=== PATIENT | female | born 1975 | race Caucasian/White ===

== ENCOUNTER 2020-08-30 09:50 | Inpatient (IN) | payer OTHER ==
[2020-08-30 12:21] VITALS: BMI 31.3
[2020-08-30] MEDS ORDERED: MAG HYDROX/AL HYDROX/SIMETH 30 ML UNIT-DOSE CUP PO PRN (13:02)
[2020-08-30] MEDS ORDERED: MAGNESIUM CITRATE 300 ML BOTTLE PO PRN (13:02)
[2020-08-30] MEDS ORDERED: BISMUTH SUBSALICYLATE 524 MG/30 ML UD PO PRN (13:02)
[2020-08-30] MEDS ORDERED: ONDANSETRON *ODT* 4 MG TABLET SL PRN (13:02)
[2020-08-30] MEDS ORDERED: MENTHOL/PHENOL 1 EACH UD MM PRN (13:02)
[2020-08-30] MEDS ORDERED: NALOXONE (NARCAN) HCL 4 MG/0.1 ML SPRAY NS PRN (13:02)
[2020-08-30] MEDS ORDERED: ACETAMINOPHEN 325 MG TABLET (FP) PO PRN ×2 (13:02)
[2020-08-30] MEDS ORDERED: MAGNESIUM HYDROX 2400MG/30ML ORAL SUSPENSION 30 ML CUP PO PRN (13:02)
[2020-08-30] MEDS ORDERED: NICOTINE POLACRILEX 2 MG GUM BUC PRN (13:02)
[2020-08-30] MEDS ORDERED: IBUPROFEN 400 MG TABLET (FP) PO PRN (13:02)
[2020-08-30] MEDS: LORazepam 1 MG TABLET PO PRN (15:42)
[2020-08-30] MEDS: hydrOXYzine PAMOATE 25 MG CAPSULE (FP) PO SCH ×3 (15:42→22:35)
[2020-08-30] MEDS: NICOTINE 14 MG/24 HOURS TOPICAL PATCH TD SCH (15:46)
[2020-08-30] MEDS: PRENATAL VITAMINS W/ FOLIC ACID TABLET (FP) PO SCH (15:46)
[2020-08-30 17:27] LABS: HEMATOCRIT 40.1 % (32.4-45.2); HEMOGLOBIN 13.5 GM/dL (10.7-15.3); MCH 31.7 pg (25.7-33.7); MCHC 33.8 g/dl (32.0-36.0); MEAN CELL VOLUME 93.6 fl (80-96); MEAN PLT VOLUME 10.4 fl (7.5-11.1); PLATELET COUNT 148 K/MM3 (134-434); RBC 4.28 M/mm3 (3.60-5.2); RDW 13.9 % (11.6-15.6); WHITE BLOOD COUNT 6.7 K/mm3 (4.0-10.0)
[2020-08-30 17:29] LABS: CALCIUM 8.7 mg/dL (8.5-10.1)
[2020-08-30 17:30] LABS: ALBUMIN 3.4 g/dl (3.4-5.0); BLOOD UREA NITROGEN 17.3 mg/dL (7-18)
[2020-08-30 17:33] LABS: CREATININE 0.7 mg/dL (0.55-1.3)
[2020-08-30 17:35] LABS: BILIRUBIN,TOTAL 0.6 mg/dL (0.2-1); TOT PROT 7.2 g/dl (6.4-8.2)
[2020-08-30] MEDS: LORazepam 2 MG TABLET PO SCH ×2 (18:01→22:36)
[2020-08-30] MEDS ORDERED: MELATONIN 5 MG TABLETS PO SCH (22:00)
[2020-08-30] MEDS: THIAMINE HCL 100 MG TABLET (FP) PO SCH (22:37)
[2020-08-31] MEDS: METHADONE HCL 40 MG DISPERSABLE TABLET PO SCH (06:50)
[2020-08-31] MEDS: LORazepam 2 MG TABLET PO SCH ×4 (06:50→22:32)
[2020-08-31] MEDS: hydrOXYzine PAMOATE 25 MG CAPSULE (FP) PO SCH ×5 (06:50→22:32)
[2020-08-31] MEDS: PRENATAL VITAMINS W/ FOLIC ACID TABLET (FP) PO SCH (11:15)
[2020-08-31] MEDS: NICOTINE 14 MG/24 HOURS TOPICAL PATCH TD SCH (11:17)
[2020-08-31] MEDS: MELATONIN 5 MG TABLETS PO SCH (22:32)
[2020-08-31] MEDS: THIAMINE HCL 100 MG TABLET (FP) PO SCH (22:32)
[2020-09-01] MEDS: hydrOXYzine PAMOATE 25 MG CAPSULE (FP) PO SCH ×5 (06:09→22:00)
[2020-09-01] MEDS: METHADONE HCL 40 MG DISPERSABLE TABLET PO SCH (06:09)
[2020-09-01] MEDS: LORazepam 1 MG TABLET PO SCH ×4 (06:09→22:00)
[2020-09-01] MEDS: PRENATAL VITAMINS W/ FOLIC ACID TABLET (FP) PO SCH (10:27)
[2020-09-01] MEDS: NICOTINE 14 MG/24 HOURS TOPICAL PATCH TD SCH (10:30)
[2020-09-01] MEDS: LORazepam 1 MG TABLET PO PRN (13:09)
[2020-09-01] MEDS: METHOCARBAMOL 500 MG TABLET PO PRN ×2 (13:09→22:01)
[2020-09-01] MEDS: THIAMINE HCL 100 MG TABLET (FP) PO SCH (22:00)
[2020-09-01] MEDS: MELATONIN 5 MG TABLETS PO SCH (22:00)
[2020-09-02] MEDS ORDERED: LORazepam 0.5 MG TABLET PO PRN
[2020-09-02] MEDS: LORazepam 0.5 MG TABLET PO SCH ×3 (06:39→17:39)
[2020-09-02] MEDS: METHADONE HCL 40 MG DISPERSABLE TABLET PO SCH (06:39)
[2020-09-02] MEDS: hydrOXYzine PAMOATE 25 MG CAPSULE (FP) PO SCH ×4 (06:43→17:37)
[2020-09-02] MEDS: METHOCARBAMOL 500 MG TABLET PO PRN (10:07)
[2020-09-02] MEDS: PRENATAL VITAMINS W/ FOLIC ACID TABLET (FP) PO SCH (10:07)
[2020-09-02] MEDS: NICOTINE 14 MG/24 HOURS TOPICAL PATCH TD SCH (10:07)
[2020-09-02 18:07] VITALS: BP 106/73; PULSE 91; TEMP 97.5
[2020-09-03] MEDS ORDERED: LORazepam 0.5 MG TABLET PO ONE (05:00)
[2020-09-03 06:05] LABS: SARS-CoV-2 NAA Not Detected (Not Detected)
== END 2020-09-02 18:29 | disposition home or self-care (01) | DRG 773 ==
LOC: YASAS 09:50 → Y6N 13:18
PROVIDERS: ADMIT Allergy & Immunology; ATTEND Allergy & Immunology
PROC: HZ2ZZZZ Detoxification Services for Substance Abuse Treatment (ICD-10-PCS; principal; 2020-08-30)
DX: F10.230 Alcohol dependence with withdrawal, uncomplicated (principal); F11.20 Opioid dependence, uncomplicated; F13.20 Sedative, hypnotic or anxiolytic dependence, uncomplicated; F14.20 Cocaine dependence, uncomplicated; F12.20 Cannabis dependence, uncomplicated; F17.210 Nicotine dependence, cigarettes, uncomplicated; F19.282 Other psychoactive substance dependence with psychoactive substance-induced sleep disorder; F19.24 Other psychoactive substance dependence with psychoactive substance-induced mood disorder; F31.9 Bipolar disorder, unspecified; R74.01 Elevation of levels of liver transaminase levels; Z56.0 Unemployment, unspecified; Z59.0 Homelessness
CPT/HCPCS: 36415; 80053; 81025; 85027; 86780; C9803; U0003; U0005

== ENCOUNTER 2021-07-04 12:50 | Inpatient (IN) | payer OTHER ==
[2021-07-04] MEDS ORDERED: ACETAMINOPHEN 325 MG TABLET (FP) PO PRN (14:00)
[2021-07-04] MEDS ORDERED: MAGNESIUM CITRATE 300 ML BOTTLE PO PRN (14:00)
[2021-07-04] MEDS ORDERED: MAGNESIUM HYDROX 2400MG/30ML ORAL SUSPENSION 30 ML CUP PO PRN (14:00)
[2021-07-04] MEDS ORDERED: MENTHOL/PHENOL 1 EACH UD MM PRN (14:00)
[2021-07-04] MEDS ORDERED: MAG HYDROX/AL HYDROX/SIMETH 30 ML UNIT-DOSE CUP PO PRN (14:00)
[2021-07-04] MEDS ORDERED: LOPERAMIDE HCL 2 MG CAPSULE PO PRN (14:00)
[2021-07-04] MEDS ORDERED: BISMUTH SUBSALICYLATE 524 MG/30 ML PO PRN (14:00)
[2021-07-04] MEDS ORDERED: ONDANSETRON *ODT* 4 MG TABLET SL PRN (14:00)
[2021-07-04 14:45] VITALS: BMI 32.7
[2021-07-04] MEDS ORDERED: METHOCARBAMOL 500 MG TABLET ONE (15:19)
[2021-07-04] MEDS ORDERED: hydrOXYzine PAMOATE 25 MG CAPSULE (FP) PO ONE (15:19)
[2021-07-04] MEDS ORDERED: IBUPROFEN 400 MG TABLET (FP) PO ONE (15:20)
[2021-07-04] MEDS ORDERED: LORazepam 1 MG TABLET ONE (15:20)
[2021-07-04] MEDS: LORazepam 1 MG TABLET PO PRN ×2 (15:22→19:41)
[2021-07-04] MEDS: IBUPROFEN 400 MG TABLET (FP) PO PRN (15:23)
[2021-07-04] MEDS: METHOCARBAMOL 500 MG TABLET PO PRN (15:23)
[2021-07-04] MEDS: hydrOXYzine PAMOATE 25 MG CAPSULE (FP) PO SCH ×3 (15:24→22:45)
[2021-07-04 17:11] LABS: CALCIUM 8.8 mg/dL (8.5-10.1)
[2021-07-04 17:12] LABS: ALBUMIN 3.3 g/dl (3.4-5.0); BLOOD UREA NITROGEN 8.1 mg/dL (7-18)
[2021-07-04 17:15] LABS: CREATININE 0.7 mg/dL (0.55-1.3)
[2021-07-04 17:16] LABS: BILIRUBIN,TOTAL 0.7 mg/dL (0.2-1); HEMATOCRIT 40.2 % (32.4-45.2); HEMOGLOBIN 13.7 GM/dL (10.7-15.3); MCH 31.2 pg (25.7-33.7); MEAN CELL VOLUME 91.9 fl (80-96); MEAN PLT VOLUME 9.6 fl (7.5-11.1); PLATELET COUNT 147 10^3/uL (134-434); RBC 4.38 M/mm3 (3.60-5.2); RDW 15.1 % (11.6-15.6); TOT PROT 7.4 g/dl (6.4-8.2); WHITE BLOOD COUNT 6.8 K/mm3 (4.0-10.0)
[2021-07-04] MEDS: LORazepam 2 MG TABLET PO SCH ×2 (17:37→22:45)
[2021-07-04] MEDS: NICOTINE 14 MG/24 HOURS TOPICAL PATCH TD SCH (17:40)
[2021-07-04] MEDS: PRENATAL VITAMINS W/ FOLIC ACID TABLET (FP) PO SCH (17:40)
[2021-07-04] MEDS: NICOTINE 10 MG CARTRIDGE (INHALER) IH PRN (17:41)
[2021-07-04] MEDS: ACETAMINOPHEN 325 MG TABLET (FP) PO PRN (17:42)
[2021-07-04] MEDS: THIAMINE HCL 100 MG TABLET (FP) PO SCH (22:45)
[2021-07-04] MEDS: MELATONIN 5 MG TABLETS PO SCH (22:45)
[2021-07-05] MEDS: hydrOXYzine PAMOATE 25 MG CAPSULE (FP) PO SCH ×5 (05:35→22:37)
[2021-07-05] MEDS: LORazepam 2 MG TABLET PO SCH ×4 (05:35→22:41)
[2021-07-05] MEDS ORDERED: VITAMINS A AND D TOPICAL OINTMENT 60 GM TUBE TP PRN (09:57)
[2021-07-05] MEDS: METHOCARBAMOL 500 MG TABLET PO PRN (10:21)
[2021-07-05] MEDS: PRENATAL VITAMINS W/ FOLIC ACID TABLET (FP) PO SCH (10:21)
[2021-07-05] MEDS: methaDONE HCL 40 MG DISPERSABLE TABLET PO SCH (10:22)
[2021-07-05] MEDS: NICOTINE 14 MG/24 HOURS TOPICAL PATCH TD SCH (10:23)
[2021-07-05] MEDS: ACETAMINOPHEN 325 MG TABLET (FP) PO PRN (10:26)
[2021-07-05] MEDS: LORazepam 1 MG TABLET PO PRN ×2 (13:48→20:30)
[2021-07-05] MEDS: IBUPROFEN 400 MG TABLET (FP) PO PRN (17:53)
[2021-07-05] MEDS: SULFAMETHOXAZOLE/TRIMETHOPRIM 800MG/160MG D.S. TABLET PO SCH (22:37)
[2021-07-05] MEDS: THIAMINE HCL 100 MG TABLET (FP) PO SCH (22:37)
[2021-07-05] MEDS: MELATONIN 5 MG TABLETS PO SCH (22:37)
[2021-07-06] MEDS: methaDONE HCL 40 MG DISPERSABLE TABLET PO SCH (06:27)
[2021-07-06] MEDS: LORazepam 1 MG TABLET PO SCH ×4 (06:28→22:03)
[2021-07-06] MEDS: hydrOXYzine PAMOATE 25 MG CAPSULE (FP) PO SCH ×5 (06:31→22:02)
[2021-07-06] MEDS: METHOCARBAMOL 500 MG TABLET PO PRN ×2 (09:59→17:12)
[2021-07-06] MEDS: PRENATAL VITAMINS W/ FOLIC ACID TABLET (FP) PO SCH (09:59)
[2021-07-06] MEDS: ACETAMINOPHEN 325 MG TABLET (FP) PO PRN ×3 (09:59→22:04)
[2021-07-06] MEDS: SULFAMETHOXAZOLE/TRIMETHOPRIM 800MG/160MG D.S. TABLET PO SCH ×2 (09:59→22:02)
[2021-07-06] MEDS: NICOTINE 10 MG CARTRIDGE (INHALER) IH PRN (10:02)
[2021-07-06] MEDS: NICOTINE 14 MG/24 HOURS TOPICAL PATCH TD SCH (10:02)
[2021-07-06] MEDS: LORazepam 1 MG TABLET PO PRN ×2 (12:28→20:13)
[2021-07-06 14:07] LABS: SARS-CoV-2 NAA Not Detected (Not Detected)
[2021-07-06] MEDS: THIAMINE HCL 100 MG TABLET (FP) PO SCH (22:02)
[2021-07-06] MEDS: MELATONIN 5 MG TABLETS PO SCH (22:02)
[2021-07-07] MEDS: hydrOXYzine PAMOATE 25 MG CAPSULE (FP) PO SCH ×5 (06:14→21:50)
[2021-07-07] MEDS: methaDONE HCL 40 MG DISPERSABLE TABLET PO SCH (06:14)
[2021-07-07] MEDS: LORazepam 0.5 MG TABLET PO SCH ×4 (06:14→23:04)
[2021-07-07] MEDS: METHOCARBAMOL 500 MG TABLET PO PRN ×2 (06:14→16:39)
[2021-07-07] MEDS: SULFAMETHOXAZOLE/TRIMETHOPRIM 800MG/160MG D.S. TABLET PO SCH ×2 (10:28→21:47)
[2021-07-07] MEDS: PRENATAL VITAMINS W/ FOLIC ACID TABLET (FP) PO SCH (10:28)
[2021-07-07] MEDS: NICOTINE 14 MG/24 HOURS TOPICAL PATCH TD SCH (10:28)
[2021-07-07 11:34] LABS: PH,URINE 7.5 (5.0-8.0); URINE APPEARANCE TURBID; URINE BILIRUBIN NEGATIVE (NEGATIVE); URINE COLOR YELLOW; URINE GLUCOSE (UA) NEGATIVE (NEGATIVE); URINE KETONE NEGATIVE (NEGATIVE); URINE LEUK ESTERASE NEGATIVE (NEGATIVE); URINE NITRITE NEGATIVE (NEGATIVE); URINE PROTEIN NEGATIVE (NEGATIVE)
[2021-07-07] MEDS: LORazepam 0.5 MG TABLET PO PRN ×3 (13:16→22:55)
[2021-07-07] MEDS: IBUPROFEN 400 MG TABLET (FP) PO PRN ×2 (16:39→21:47)
[2021-07-07] MEDS: MELATONIN 5 MG TABLETS PO SCH (21:48)
[2021-07-07] MEDS: THIAMINE HCL 100 MG TABLET (FP) PO SCH (21:50)
[2021-07-08] MEDS ORDERED: LORazepam 0.5 MG TABLET PO ONE (05:00)
[2021-07-08] MEDS: methaDONE HCL 40 MG DISPERSABLE TABLET PO SCH (05:21)
[2021-07-08] MEDS: hydrOXYzine PAMOATE 25 MG CAPSULE (FP) PO SCH ×2 (05:21→09:27)
[2021-07-08] MEDS: SULFAMETHOXAZOLE/TRIMETHOPRIM 800MG/160MG D.S. TABLET PO SCH (09:27)
[2021-07-08] MEDS: PRENATAL VITAMINS W/ FOLIC ACID TABLET (FP) PO SCH (09:27)
[2021-07-08] MEDS: NICOTINE 14 MG/24 HOURS TOPICAL PATCH TD SCH (09:27)
[2021-07-08] MEDS: METHOCARBAMOL 500 MG TABLET PO PRN (09:27)
[2021-07-08 10:58] VITALS: BP 104/61; PULSE 82; TEMP 98.1
== END 2021-07-08 11:55 | disposition other institution (70) | DRG 773 ==
LOC: YASAS 12:50 → Y6N 14:54
PROVIDERS: ADMIT Allergy & Immunology; ATTEND Allergy & Immunology
PROC: HZ2ZZZZ Detoxification Services for Substance Abuse Treatment (ICD-10-PCS; principal; 2021-07-04)
DX: F10.230 Alcohol dependence with withdrawal, uncomplicated (principal); F11.20 Opioid dependence, uncomplicated; F14.20 Cocaine dependence, uncomplicated; F13.20 Sedative, hypnotic or anxiolytic dependence, uncomplicated; F17.210 Nicotine dependence, cigarettes, uncomplicated; F19.282 Other psychoactive substance dependence with psychoactive substance-induced sleep disorder; F19.24 Other psychoactive substance dependence with psychoactive substance-induced mood disorder; F31.9 Bipolar disorder, unspecified; B18.2 Chronic viral hepatitis C; Z59.01 Sheltered homelessness; Z56.0 Unemployment, unspecified
CPT/HCPCS: 36415; 80053; 81003; 81025; 85027; 86780; 87086; 87186; C9803-CS; U0003; U0005

== ENCOUNTER 2021-07-08 12:03 | Inpatient (IN) | payer OTHER ==
[2021-07-08] MEDS ORDERED: P-EPHED 60MG/TRIPROLIDI 2.5MG TABLET PO PRN (13:29)
[2021-07-08] MEDS ORDERED: LOPERAMIDE HCL 2 MG CAPSULE PO PRN (13:29)
[2021-07-08] MEDS ORDERED: MAGNESIUM HYDROX 2400MG/30ML ORAL SUSPENSION 30 ML CUP PO PRN (13:29)
[2021-07-08] MEDS ORDERED: guaiFENesin 200 MG/10 ML 10 ML UNIT-DOSE CUPS PO PRN (13:29)
[2021-07-08] MEDS ORDERED: MAG HYDROX/AL HYDROX/SIMETH 30 ML UNIT-DOSE CUP PO PRN (13:29)
[2021-07-08] MEDS ORDERED: MAGNESIUM CITRATE 300 ML BOTTLE PO PRN (13:29)
[2021-07-08] MEDS ORDERED: IBUPROFEN 400 MG TABLET (FP) PO PRN (13:29)
[2021-07-08] MEDS: ACETAMINOPHEN 325 MG TABLET (FP) PO PRN (16:03)
[2021-07-08] MEDS: VITAMINS A AND D TOPICAL OINTMENT 60 GM TUBE TP SCH (21:50)
[2021-07-08] MEDS: hydrOXYzine PAMOATE 25 MG CAPSULE (FP) PO PRN (21:52)
[2021-07-08] MEDS: MELATONIN 5 MG TABLETS PO SCH (21:52)
[2021-07-08] MEDS: METHOCARBAMOL 500 MG TABLET PO PRN (21:52)
[2021-07-08] MEDS: THIAMINE HCL 100 MG TABLET (FP) PO SCH (21:52)
[2021-07-08] MEDS: SULFAMETHOXAZOLE/TRIMETHOPRIM 800MG/160MG D.S. TABLET PO SCH (21:53)
[2021-07-08] MEDS: NICOTINE 10 MG CARTRIDGE (INHALER) IH PRN (21:53)
[2021-07-09] MEDS: methaDONE HCL 40 MG DISPERSABLE TABLET PO SCH (06:09)
[2021-07-09] MEDS: ACETAMINOPHEN 325 MG TABLET (FP) PO PRN ×2 (08:06→18:29)
[2021-07-09] MEDS: hydrOXYzine PAMOATE 25 MG CAPSULE (FP) PO PRN ×3 (10:47→21:31)
[2021-07-09] MEDS: SULFAMETHOXAZOLE/TRIMETHOPRIM 800MG/160MG D.S. TABLET PO SCH ×2 (10:47→21:31)
[2021-07-09] MEDS: PRENATAL VITAMINS W/ FOLIC ACID TABLET (FP) PO SCH (10:47)
[2021-07-09] MEDS: VITAMINS A AND D TOPICAL OINTMENT 60 GM TUBE TP SCH (10:48)
[2021-07-09] MEDS: NICOTINE 10 MG CARTRIDGE (INHALER) IH PRN ×2 (10:48→18:27)
[2021-07-09] MEDS: METHOCARBAMOL 500 MG TABLET PO PRN ×2 (10:49→18:29)
[2021-07-09] MEDS: THIAMINE HCL 100 MG TABLET (FP) PO SCH (21:31)
[2021-07-09] MEDS: MELATONIN 5 MG TABLETS PO SCH (21:31)
[2021-07-10] MEDS: METHOCARBAMOL 500 MG TABLET PO PRN ×2 (01:04→10:30)
[2021-07-10] MEDS: methaDONE HCL 40 MG DISPERSABLE TABLET PO SCH (06:07)
[2021-07-10] MEDS: NICOTINE 10 MG CARTRIDGE (INHALER) IH PRN (06:07)
[2021-07-10 07:27] VITALS: BP 106/70; PULSE 65; TEMP 97.4
[2021-07-10] MEDS: SULFAMETHOXAZOLE/TRIMETHOPRIM 800MG/160MG D.S. TABLET PO SCH (10:28)
[2021-07-10] MEDS: PRENATAL VITAMINS W/ FOLIC ACID TABLET (FP) PO SCH (10:28)
[2021-07-10] MEDS: VITAMINS A AND D TOPICAL OINTMENT 60 GM TUBE TP SCH (10:29)
[2021-07-10] MEDS ORDERED: DOXEPIN HCL 25 MG CAPSULE PO SCH (22:00)
== END 2021-07-10 10:58 | disposition left against medical advice (07) | DRG 770 ==
LOC: YASAS 12:03 → Y5N 12:04
PROVIDERS: ADMIT Allergy & Immunology; ATTEND Allergy & Immunology
PROC: HZ42ZZZ Group Counseling for Substance Abuse Treatment, Cognitive-Behavioral (ICD-10-PCS; principal; 2021-07-08)
DX: F13.20 Sedative, hypnotic or anxiolytic dependence, uncomplicated (principal); F11.20 Opioid dependence, uncomplicated; F14.20 Cocaine dependence, uncomplicated; F12.20 Cannabis dependence, uncomplicated; F17.210 Nicotine dependence, cigarettes, uncomplicated; F19.24 Other psychoactive substance dependence with psychoactive substance-induced mood disorder; J45.909 Unspecified asthma, uncomplicated; N39.0 Urinary tract infection, site not specified; B18.2 Chronic viral hepatitis C; M79.602 Pain in left arm; Z56.0 Unemployment, unspecified; Z59.01 Sheltered homelessness

== ENCOUNTER 2021-11-12 09:58 | Inpatient (IN) | payer OTHER ==
[2021-11-12 11:58] VITALS: BMI 25.0
[2021-11-12] MEDS: CEPHALEXIN MONOHYDRATE 500 MG CAPSULE (UD) PO SCH ×2 (12:02→18:25)
[2021-11-12] MEDS ORDERED: LOPERAMIDE HCL 2 MG CAPSULE PO PRN (13:00)
[2021-11-12] MEDS ORDERED: MAGNESIUM HYDROX 2400MG/30ML ORAL SUSPENSION 30 ML CUP PO PRN (13:00)
[2021-11-12] MEDS ORDERED: ONDANSETRON *ODT* 4 MG TABLET SL PRN (13:00)
[2021-11-12] MEDS ORDERED: BISMUTH SUBSALICYLATE 262 MG/15 ML BTL PO PRN (13:00)
[2021-11-12] MEDS ORDERED: DICYCLOMINE HCL 10 MG CAPSULE PO PRN (13:00)
[2021-11-12] MEDS ORDERED: MAG HYDROX/AL HYDROX/SIMETH 30 ML UNIT-DOSE CUP PO PRN (13:00)
[2021-11-12] MEDS ORDERED: IBUPROFEN 400 MG TABLET (FP) PO PRN (13:00)
[2021-11-12] MEDS ORDERED: MAGNESIUM CITRATE 300 ML BOTTLE PO PRN (13:00)
[2021-11-12] MEDS ORDERED: ACETAMINOPHEN 325 MG TABLET (FP) PO PRN (13:00)
[2021-11-12] MEDS ORDERED: BENZOCAINE/MENTHOL (CHLORASEPTIC ) LOZENGE MM PRN (13:00)
[2021-11-12] MEDS: hydrOXYzine PAMOATE 25 MG CAPSULE (FP) PO SCH ×3 (15:55→22:03)
[2021-11-12] MEDS: IBUPROFEN 600 MG TABLET (FP) PO PRN (18:25)
[2021-11-12] MEDS: LORazepam 2 MG TABLET PO SCH ×2 (18:26→22:45)
[2021-11-12] MEDS: MELATONIN 5 MG TABLETS PO SCH (22:45)
[2021-11-12] MEDS: THIAMINE HCL 100 MG TABLET (FP) PO SCH (22:45)
[2021-11-12] MEDS: ACETAMINOPHEN 325 MG TABLET (FP) PO PRN (22:46)
[2021-11-12] MEDS: NICOTINE 10 MG CARTRIDGE (INHALER) IH PRN (22:48)
[2021-11-13] MEDS: CEPHALEXIN MONOHYDRATE 500 MG CAPSULE (UD) PO SCH ×4 (05:24→23:20)
[2021-11-13] MEDS: hydrOXYzine PAMOATE 25 MG CAPSULE (FP) PO SCH ×5 (05:24→23:19)
[2021-11-13] MEDS: LORazepam 2 MG TABLET PO SCH ×4 (05:24→23:20)
[2021-11-13] MEDS: PRENATAL VITAMINS W/ FOLIC ACID TABLET (FP) PO SCH (11:43)
[2021-11-13] MEDS: IBUPROFEN 600 MG TABLET (FP) PO PRN ×2 (11:46→23:19)
[2021-11-13 11:51] LABS: HEMATOCRIT 38.1 % (32.4-45.2); HEMOGLOBIN 12.6 GM/dL (10.7-15.3); MCH 30.4 pg (25.7-33.7); MCHC 32.9 g/dl (32.0-36.0); MEAN CELL VOLUME 92.3 fl (80-96); MEAN PLT VOLUME 9.7 fl (7.5-11.1); PLATELET COUNT 130 10^3/uL (134-434); RBC 4.13 M/mm3 (3.60-5.2); RDW 14.7 % (11.6-15.6); WHITE BLOOD COUNT 3.4 K/mm3 (4.0-10.0)
[2021-11-13 12:56] LABS: CALCIUM 8.2 mg/dL (8.5-10.1)
[2021-11-13 12:57] LABS: ALBUMIN 2.6 g/dl (3.4-5.0); BLOOD UREA NITROGEN 17.5 mg/dL (7-18)
[2021-11-13 13:00] LABS: CREATININE 0.5 mg/dL (0.55-1.3)
[2021-11-13 13:01] LABS: TOT PROT 6.1 g/dl (6.4-8.2)
[2021-11-13 13:02] LABS: BILIRUBIN,TOTAL 0.4 mg/dL (0.2-1)
[2021-11-13] MEDS: methaDONE HCL 40 MG DISPERSABLE TABLET PO SCH (13:34)
[2021-11-13] MEDS: LORazepam 1 MG TABLET PO PRN (15:38)
[2021-11-13] MEDS: METHOCARBAMOL 500 MG TABLET PO PRN (18:01)
[2021-11-13] MEDS: ACETAMINOPHEN 325 MG TABLET (FP) PO PRN (18:05)
[2021-11-13] MEDS: THIAMINE HCL 100 MG TABLET (FP) PO SCH (23:18)
[2021-11-13] MEDS: MELATONIN 5 MG TABLETS PO SCH (23:18)
[2021-11-14] MEDS: CEPHALEXIN MONOHYDRATE 500 MG CAPSULE (UD) PO SCH ×4 (06:04→23:08)
[2021-11-14] MEDS: LORazepam 1 MG TABLET PO SCH ×4 (06:04→23:08)
[2021-11-14] MEDS: hydrOXYzine PAMOATE 25 MG CAPSULE (FP) PO SCH ×5 (06:04→23:08)
[2021-11-14] MEDS: methaDONE HCL 40 MG DISPERSABLE TABLET PO SCH (06:04)
[2021-11-14] MEDS: PRENATAL VITAMINS W/ FOLIC ACID TABLET (FP) PO SCH (10:53)
[2021-11-14] MEDS: ACETAMINOPHEN 325 MG TABLET (FP) PO PRN (10:56)
[2021-11-14] MEDS: BACITRACIN 0.9 GM PACKET TP SCH ×2 (10:58→23:09)
[2021-11-14] MEDS: METHOCARBAMOL 500 MG TABLET PO PRN ×2 (10:58→23:08)
[2021-11-14] MEDS: LORazepam 1 MG TABLET PO PRN (13:29)
[2021-11-14] MEDS: IBUPROFEN 600 MG TABLET (FP) PO PRN (18:19)
[2021-11-14] MEDS: MELATONIN 5 MG TABLETS PO SCH (23:07)
[2021-11-14] MEDS: THIAMINE HCL 100 MG TABLET (FP) PO SCH (23:08)
[2021-11-15] MEDS ORDERED: LORazepam 0.5 MG TABLET PO PRN
[2021-11-15] MEDS: CEPHALEXIN MONOHYDRATE 500 MG CAPSULE (UD) PO SCH ×3 (05:52→17:02)
[2021-11-15] MEDS: LORazepam 0.5 MG TABLET PO SCH ×4 (05:52→22:13)
[2021-11-15] MEDS: methaDONE HCL 40 MG DISPERSABLE TABLET PO SCH (05:53)
[2021-11-15] MEDS: ACETAMINOPHEN 325 MG TABLET (FP) PO PRN ×2 (05:56→17:03)
[2021-11-15] MEDS: hydrOXYzine PAMOATE 25 MG CAPSULE (FP) PO SCH ×5 (06:02→22:13)
[2021-11-15] MEDS: BACITRACIN 0.9 GM PACKET TP SCH ×2 (11:39→22:13)
[2021-11-15] MEDS: METHOCARBAMOL 500 MG TABLET PO PRN ×2 (11:39→17:02)
[2021-11-15] MEDS: PRENATAL VITAMINS W/ FOLIC ACID TABLET (FP) PO SCH (11:39)
[2021-11-15] MEDS: THIAMINE HCL 100 MG TABLET (FP) PO SCH (22:13)
[2021-11-15] MEDS: MELATONIN 5 MG TABLETS PO SCH (22:13)
[2021-11-15] MEDS: IBUPROFEN 600 MG TABLET (FP) PO PRN (22:18)
[2021-11-16] MEDS: CEPHALEXIN MONOHYDRATE 500 MG CAPSULE (UD) PO SCH ×4 (01:04→17:18)
[2021-11-16] MEDS ORDERED: LORazepam 0.5 MG TABLET PO ONE (05:00)
[2021-11-16] MEDS: hydrOXYzine PAMOATE 25 MG CAPSULE (FP) PO SCH ×5 (05:28→22:24)
[2021-11-16] MEDS: methaDONE HCL 40 MG DISPERSABLE TABLET PO SCH (05:28)
[2021-11-16] MEDS: BACITRACIN 0.9 GM PACKET TP SCH ×2 (11:32→22:24)
[2021-11-16] MEDS: PRENATAL VITAMINS W/ FOLIC ACID TABLET (FP) PO SCH (11:32)
[2021-11-16] MEDS: IBUPROFEN 600 MG TABLET (FP) PO PRN ×2 (11:33→17:18)
[2021-11-16] MEDS: NICOTINE 10 MG CARTRIDGE (INHALER) IH PRN (11:35)
[2021-11-16] MEDS: METHOCARBAMOL 500 MG TABLET PO PRN (17:18)
[2021-11-16] MEDS: THIAMINE HCL 100 MG TABLET (FP) PO SCH (22:24)
[2021-11-16] MEDS: MELATONIN 5 MG TABLETS PO SCH (22:24)
[2021-11-17] MEDS: CEPHALEXIN MONOHYDRATE 500 MG CAPSULE (UD) PO SCH ×3 (00:38→11:18)
[2021-11-17] MEDS: hydrOXYzine PAMOATE 25 MG CAPSULE (FP) PO SCH ×4 (05:39→17:44)
[2021-11-17] MEDS: methaDONE HCL 40 MG DISPERSABLE TABLET PO SCH (05:39)
[2021-11-17] MEDS: METHOCARBAMOL 500 MG TABLET PO PRN ×2 (05:41→13:46)
[2021-11-17 09:43] VITALS: RESP 18
[2021-11-17] MEDS: PRENATAL VITAMINS W/ FOLIC ACID TABLET (FP) PO SCH (10:40)
[2021-11-17] MEDS: BACITRACIN 0.9 GM PACKET TP SCH (10:40)
[2021-11-17] MEDS: IBUPROFEN 600 MG TABLET (FP) PO PRN ×2 (13:46→17:48)
[2021-11-17 17:18] VITALS: BP 100/60; PULSE 62; TEMP 97.7
== END 2021-11-17 18:20 | disposition other institution (70) | DRG 773 ==
LOC: YASAS 09:58 → Y6N 13:09 → UNDODISIN 11-17 18:20
PROVIDERS: ADMIT Allergy & Immunology; ATTEND Surgery
PROC: HZ2ZZZZ Detoxification Services for Substance Abuse Treatment (ICD-10-PCS; principal; 2021-11-12)
DX: F10.230 Alcohol dependence with withdrawal, uncomplicated (principal); F11.20 Opioid dependence, uncomplicated; F13.230 Sedative, hypnotic or anxiolytic dependence with withdrawal, uncomplicated; F14.20 Cocaine dependence, uncomplicated; F12.20 Cannabis dependence, uncomplicated; F19.282 Other psychoactive substance dependence with psychoactive substance-induced sleep disorder; F19.24 Other psychoactive substance dependence with psychoactive substance-induced mood disorder; F17.210 Nicotine dependence, cigarettes, uncomplicated; F31.9 Bipolar disorder, unspecified; B18.2 Chronic viral hepatitis C; G47.00 Insomnia, unspecified; J45.909 Unspecified asthma, uncomplicated; F18.24 Inhalant dependence with inhalant-induced mood disorder; Z59.01 Sheltered homelessness
CPT/HCPCS: 36415; 73090-TC-LT-FY; 73130-TC-LT-FY; 80053; 81025; 85027; 86780; C9803-CS; U0003; U0005

== ENCOUNTER 2021-11-17 15:12 | Inpatient (IN) | payer OTHER ==
[2021-11-17] MEDS ORDERED: MAGNESIUM CITRATE 300 ML BOTTLE PO PRN (16:24)
[2021-11-17] MEDS ORDERED: guaiFENesin 200 MG/10 ML 10 ML UNIT-DOSE CUPS PO PRN (16:24)
[2021-11-17] MEDS ORDERED: LOPERAMIDE HCL 2 MG CAPSULE PO PRN (16:24)
[2021-11-17] MEDS ORDERED: MAGNESIUM HYDROX 2400MG/30ML ORAL SUSPENSION 30 ML CUP PO PRN (16:24)
[2021-11-17] MEDS ORDERED: BENZOCAINE/MENTHOL (CHLORASEPTIC ) LOZENGE MM PRN (16:24)
[2021-11-17] MEDS ORDERED: MAG HYDROX/AL HYDROX/SIMETH 30 ML UNIT-DOSE CUP PO PRN (16:24)
[2021-11-17] MEDS ORDERED: P-EPHED 60MG/TRIPROLIDI 2.5MG TABLET PO PRN (16:24)
[2021-11-17] MEDS ORDERED: hydrOXYzine PAMOATE 25 MG CAPSULE (FP) PO PRN (16:26)
[2021-11-17] MEDS ORDERED: hydrOXYzine PAMOATE 25 MG CAPSULE (FP) PO SCH (18:00)
[2021-11-17] MEDS: NICOTINE 10 MG CARTRIDGE (INHALER) IH PRN (20:25)
[2021-11-17] MEDS: THIAMINE HCL 100 MG TABLET (FP) PO SCH (22:12)
[2021-11-17] MEDS: MELATONIN 5 MG TABLETS PO SCH (22:12)
[2021-11-17] MEDS: IBUPROFEN 400 MG TABLET (FP) PO PRN (22:13)
[2021-11-17 22:56] VITALS: RESP 18
[2021-11-18] MEDS: methaDONE HCL 40 MG DISPERSABLE TABLET PO SCH (05:36)
[2021-11-18] MEDS: IBUPROFEN 400 MG TABLET (FP) PO PRN ×3 (08:58→21:17)
[2021-11-18] MEDS: PRENATAL VITAMINS W/ FOLIC ACID TABLET (FP) PO SCH (09:00)
[2021-11-18] MEDS: NICOTINE 7 MG/24 HOURS TOPICAL PATCH TD SCH (10:43)
[2021-11-18] MEDS ORDERED: COLLOIDAL OATMEAL 1 BAR EACH TP PRN (11:39)
[2021-11-18] MEDS: BACITRACIN 0.9 GM PACKET TP SCH ×2 (14:22→22:17)
[2021-11-18] MEDS: CEPHALEXIN MONOHYDRATE 500 MG CAPSULE (UD) PO SCH ×3 (14:22→23:58)
[2021-11-18] MEDS: METHOCARBAMOL 500 MG TABLET PO PRN ×2 (14:23→21:17)
[2021-11-18] MEDS: THIAMINE HCL 100 MG TABLET (FP) PO SCH (21:13)
[2021-11-18] MEDS: MELATONIN 5 MG TABLETS PO SCH (21:13)
[2021-11-19] MEDS: ACETAMINOPHEN 325 MG TABLET (FP) PO PRN ×3 (01:04→17:44)
[2021-11-19] MEDS: CEPHALEXIN MONOHYDRATE 500 MG CAPSULE (UD) PO SCH ×3 (06:11→17:44)
[2021-11-19] MEDS: METHOCARBAMOL 500 MG TABLET PO PRN ×3 (06:11→21:09)
[2021-11-19] MEDS: methaDONE HCL 40 MG DISPERSABLE TABLET PO SCH (06:12)
[2021-11-19] MEDS: NICOTINE 10 MG CARTRIDGE (INHALER) IH PRN (06:16)
[2021-11-19] MEDS: NICOTINE 7 MG/24 HOURS TOPICAL PATCH TD SCH (10:40)
[2021-11-19] MEDS: PRENATAL VITAMINS W/ FOLIC ACID TABLET (FP) PO SCH (10:40)
[2021-11-19] MEDS: BACITRACIN 0.9 GM PACKET TP SCH ×2 (10:41→21:08)
[2021-11-19] MEDS: MINERAL OIL/PETROLAT/WATER TOPICAL CREAM 113 GM JAR TP SCH (12:33)
[2021-11-19] MEDS: hydrOXYzine PAMOATE 25 MG CAPSULE (FP) PO PRN ×3 (12:33→21:09)
[2021-11-19] MEDS: IBUPROFEN 400 MG TABLET (FP) PO PRN ×2 (12:34→21:10)
[2021-11-19] MEDS: THIAMINE HCL 100 MG TABLET (FP) PO SCH (21:09)
[2021-11-19] MEDS: QUEtiapine FUMARATE 100 MG TABLET (FP) PO SCH (21:10)
[2021-11-19] MEDS: MELATONIN 5 MG TABLETS PO SCH (21:10)
[2021-11-20] MEDS: CEPHALEXIN MONOHYDRATE 500 MG CAPSULE (UD) PO SCH ×4 (02:12→17:56)
[2021-11-20] MEDS: hydrOXYzine PAMOATE 25 MG CAPSULE (FP) PO PRN ×2 (05:39→17:57)
[2021-11-20] MEDS: ACETAMINOPHEN 325 MG TABLET (FP) PO PRN ×2 (05:40→17:57)
[2021-11-20] MEDS: methaDONE HCL 40 MG DISPERSABLE TABLET PO SCH (05:42)
[2021-11-20] MEDS: NICOTINE 10 MG CARTRIDGE (INHALER) IH PRN (06:28)
[2021-11-20] MEDS: NICOTINE 7 MG/24 HOURS TOPICAL PATCH TD SCH (10:39)
[2021-11-20] MEDS: MINERAL OIL/PETROLAT/WATER TOPICAL CREAM 113 GM JAR TP SCH (10:39)
[2021-11-20] MEDS: BACITRACIN 0.9 GM PACKET TP SCH ×2 (10:39→21:09)
[2021-11-20] MEDS: PRENATAL VITAMINS W/ FOLIC ACID TABLET (FP) PO SCH (10:40)
[2021-11-20] MEDS: LORATADINE 10 MG TABLET PO SCH (12:12)
[2021-11-20] MEDS: IBUPROFEN 400 MG TABLET (FP) PO PRN ×2 (13:36→21:11)
[2021-11-20] MEDS: THIAMINE HCL 100 MG TABLET (FP) PO SCH (21:08)
[2021-11-20] MEDS: QUEtiapine FUMARATE 100 MG TABLET (FP) PO SCH (21:08)
[2021-11-20] MEDS: METHOCARBAMOL 500 MG TABLET PO PRN (21:08)
[2021-11-20] MEDS: MELATONIN 5 MG TABLETS PO SCH (21:09)
[2021-11-21] MEDS: CEPHALEXIN MONOHYDRATE 500 MG CAPSULE (UD) PO SCH ×5 (00:08→23:15)
[2021-11-21] MEDS: ACETAMINOPHEN 325 MG TABLET (FP) PO PRN ×2 (06:40→16:52)
[2021-11-21] MEDS: methaDONE HCL 40 MG DISPERSABLE TABLET PO SCH (06:41)
[2021-11-21] MEDS: PRENATAL VITAMINS W/ FOLIC ACID TABLET (FP) PO SCH (10:48)
[2021-11-21] MEDS: LORATADINE 10 MG TABLET PO SCH (10:49)
[2021-11-21] MEDS: hydrOXYzine PAMOATE 25 MG CAPSULE (FP) PO PRN ×3 (10:50→21:17)
[2021-11-21] MEDS: METHOCARBAMOL 500 MG TABLET PO PRN ×2 (10:50→19:43)
[2021-11-21] MEDS: BACITRACIN 0.9 GM PACKET TP SCH ×2 (10:50→21:16)
[2021-11-21] MEDS: NICOTINE 7 MG/24 HOURS TOPICAL PATCH TD SCH (10:51)
[2021-11-21] MEDS: MINERAL OIL/PETROLAT/WATER TOPICAL CREAM 113 GM JAR TP SCH (10:51)
[2021-11-21] MEDS: IBUPROFEN 400 MG TABLET (FP) PO PRN ×2 (14:01→19:42)
[2021-11-21] MEDS: NICOTINE 10 MG CARTRIDGE (INHALER) IH PRN (14:02)
[2021-11-21] MEDS: THIAMINE HCL 100 MG TABLET (FP) PO SCH (21:16)
[2021-11-21] MEDS: MELATONIN 5 MG TABLETS PO SCH (21:16)
[2021-11-21] MEDS: QUEtiapine FUMARATE 100 MG TABLET (FP) PO SCH (21:16)
[2021-11-22] MEDS: CEPHALEXIN MONOHYDRATE 500 MG CAPSULE (UD) PO SCH ×2 (06:17→09:17)
[2021-11-22] MEDS: methaDONE HCL 40 MG DISPERSABLE TABLET PO SCH (06:18)
[2021-11-22] MEDS: ACETAMINOPHEN 325 MG TABLET (FP) PO PRN (06:19)
[2021-11-22 07:19] VITALS: BP 119/72; PULSE 57; TEMP 97.5
[2021-11-22] MEDS: LORATADINE 10 MG TABLET PO SCH (09:17)
[2021-11-22] MEDS: BACITRACIN 0.9 GM PACKET TP SCH (09:17)
[2021-11-22] MEDS: PRENATAL VITAMINS W/ FOLIC ACID TABLET (FP) PO SCH (09:17)
[2021-11-22] MEDS: NICOTINE 7 MG/24 HOURS TOPICAL PATCH TD SCH (09:17)
[2021-11-22] MEDS: IBUPROFEN 400 MG TABLET (FP) PO PRN (09:17)
[2021-11-22] MEDS: hydrOXYzine PAMOATE 25 MG CAPSULE (FP) PO PRN (09:19)
[2021-11-22] MEDS: MINERAL OIL/PETROLAT/WATER TOPICAL CREAM 113 GM JAR TP SCH (09:20)
== END 2021-11-22 10:00 | disposition home or self-care (01) | DRG 772 ==
LOC: YASAS 15:12 → Y5N 15:13
PROVIDERS: ADMIT Allergy & Immunology; ATTEND Psychiatry & Neurology Pain Medicine
PROC: HZ42ZZZ Group Counseling for Substance Abuse Treatment, Cognitive-Behavioral (ICD-10-PCS; principal; 2021-11-17)
DX: F10.20 Alcohol dependence, uncomplicated (principal); F11.20 Opioid dependence, uncomplicated; F13.20 Sedative, hypnotic or anxiolytic dependence, uncomplicated; F14.20 Cocaine dependence, uncomplicated; F12.20 Cannabis dependence, uncomplicated; F19.24 Other psychoactive substance dependence with psychoactive substance-induced mood disorder; F19.282 Other psychoactive substance dependence with psychoactive substance-induced sleep disorder; F19.280 Other psychoactive substance dependence with psychoactive substance-induced anxiety disorder; F39 Unspecified mood [affective] disorder; F31.9 Bipolar disorder, unspecified; J45.909 Unspecified asthma, uncomplicated; B18.2 Chronic viral hepatitis C; T14.8XXD Other injury of unspecified body region, subsequent encounter; X58.XXXD Exposure to other specified factors, subsequent encounter; Z86.69 Personal history of other diseases of the nervous system and sense organs; Z56.0 Unemployment, unspecified; Z59.01 Sheltered homelessness